=== PATIENT | male | born 1940 | race Hispanic/Latino ===

== ENCOUNTER 2018-01-20 15:50 | Emergency (ER) | payer OTHER, MEDICARE ==
[~2018-01-20] VITALS: Ht 175.3 cm; Wt 98.9 kg
[2018-01-20 19:09] LABS: BILIRUBIN,URINE NEGATIVE (NEGATIVE); CLARITY,URINE CLOUDY (CLEAR); COLOR,URINE YELLOW (YELLOW); KETONES,URINE NEGATIVE (NEGATIVE); LEUKOCYTE ESTERASE ,URINE TRACE (NEGATIVE); NITRITE,URINE NEGATIVE (NEGATIVE); PROTEIN,URINE DIPSTICK 2+ (NEGATIVE); URINE UROBILINOGEN 0.2 mg/dL (0.2 - 1)
[2018-01-20 19:20] LABS: BACTERIA,URINE MODERATE /HPF; EPITHELIAL CELLS,URINE MODERATE /LPF; RBC,URINE >50 /HPF (0-5)
[2018-01-20 19:47] LABS: BASOPHILS # (AUTO) 0.1 (0.0-0.1); BASOPHILS % 0.5 % (0.0-1.0); EOSINOPHILS # (AUTO) 0.2 (0.0-0.4); EOSINOPHILS % 1.4 % (0.0-6.0); HEMATOCRIT 42.1 % (38.2-49.6); HEMOGLOBIN 14.3 g/dL (14.0-18.0); LYMPHOCYTES # (AUTO) 2.1 (1.0-3.2); LYMPHOCYTES % 17.1 % (18.0-39.1); MEAN CORPUSCULAR HEMOGLOBIN 29.9 pg (28-32); MEAN CORPUSCULAR VOLUME 87.9 fL (81-99); MONOCYTES # (AUTO) 0.8 (0.2-0.8); MONOCYTES % 6.9 % (4.4-11.3); NEUTROPHILS # (AUTO) 8.7 (2.1-6.9); NEUTROPHILS % 72.6 % (38.7-80.0); PLATELET COUNT 265 x10e3/uL (140-360); RED BLOOD COUNT 4.79 x10e6/uL (4.3-5.7); RED CELL DISTRIBUTION WIDTH 13.6 % (11.7-14.4)
[2018-01-20 20:01] LABS: ALBUMIN 3.8 g/dL (3.5-5.0); ANION GAP 13.7 mmol/L (8-16); CALCIUM 10.1 mg/dL (8.4-10.2); CREATININE, SERUM 1.64 mg/dL (0.72-1.25); POTASSIUM 4.7 mmol/L (3.5-5.1)
[2018-01-20] MEDS ORDERED: DEXTROSE 50% SYRINGE 50 ML IV STA (20:28)
[2018-01-20] MEDS ORDERED: DEXTROSE 50% SYRINGE 50 ML IV ONE (20:30)
[2018-01-20 22:19] VITALS: BP 165/72
== END 2018-01-20 22:59 | disposition home or self-care (01) ==
LOC: ER 15:50
DX: T83.018A Breakdown (mechanical) of other urinary catheter, initial encounter (principal); E11.649 Type 2 diabetes mellitus with hypoglycemia without coma; I10 Essential (primary) hypertension; H40.9 Unspecified glaucoma
CPT/HCPCS: 36415; 51702; 80053; 81001; 85025; 99284; J7799; 51700

== ENCOUNTER 2018-02-18 02:41 | Emergency (ER) | payer OTHER, MEDICARE ==
[~2018-02-18] VITALS: Ht 175.3 cm; Wt 98.9 kg
== END 2018-02-18 03:30 | disposition home or self-care (01) ==
LOC: ER 02:41
DX: R33.9 Retention of urine, unspecified (principal); N40.1 Benign prostatic hyperplasia with lower urinary tract symptoms
CPT/HCPCS: 51700; 99282

== ENCOUNTER 2018-02-18 11:33 | Emergency (ER) | payer OTHER, MEDICARE ==
[~2018-02-18] VITALS: Ht 175.3 cm; Wt 98.9 kg
== END 2018-02-18 14:40 | disposition home or self-care (01) ==
LOC: ER 11:33
DX: T83.018A Breakdown (mechanical) of other urinary catheter, initial encounter (principal); I10 Essential (primary) hypertension; E11.9 Type 2 diabetes mellitus without complications; H40.9 Unspecified glaucoma
CPT/HCPCS: 51700; 99282

== ENCOUNTER 2018-02-26 21:00 | Observation (INO) | payer OTHER, MEDICARE ==
[~2018-02-26] VITALS: Ht 175.3 cm; Wt 98.4 kg
[2018-02-26 22:11] LABS: BASOPHILS # (AUTO) 0.1 (0.0-0.1); BASOPHILS % 0.7 % (0.0-1.0); EOSINOPHILS # (AUTO) 0.4 (0.0-0.4); EOSINOPHILS % 4.5 % (0.0-6.0); HEMATOCRIT 33.7 % (38.2-49.6); LYMPHOCYTES # (AUTO) 2.7 (1.0-3.2); LYMPHOCYTES % 32.4 % (18.0-39.1); MEAN CORPUSCULAR HEMOGLOBIN 30.2 pg (28-32); MEAN CORPUSCULAR HGB CONC 35.6 g/dL (31-35); MEAN CORPUSCULAR VOLUME 84.9 fL (81-99); MONOCYTES # (AUTO) 0.8 (0.2-0.8); MONOCYTES % 9.9 % (4.4-11.3); NEUTROPHILS # (AUTO) 4.2 (2.1-6.9); NEUTROPHILS % 51.4 % (38.7-80.0); PLATELET COUNT 270 x10e3/uL (140-360); RED BLOOD COUNT 3.97 x10e6/uL (4.3-5.7)
[2018-02-26 22:15] LABS: BILIRUBIN,URINE NEGATIVE (NEGATIVE); CLARITY,URINE CLEAR (CLEAR); COLOR,URINE YELLOW (YELLOW); KETONES,URINE NEGATIVE (NEGATIVE); LEUKOCYTE ESTERASE ,URINE NEGATIVE (NEGATIVE); NITRITE,URINE NEGATIVE (NEGATIVE); PROTEIN,URINE DIPSTICK NEGATIVE (NEGATIVE); URINE UROBILINOGEN 0.2 mg/dL (0.2 - 1); WBC,URINE (MAN) 0-5 /HPF (0-5)
[2018-02-26 22:20] LABS: INR 1.21; PARTIAL THROMBOPLASTIN TIME 34.1 seconds (23.8-35.5); PROTHROMBIN TIME 14.4 seconds (11.9-14.5)
[2018-02-26 22:29] LABS: ALANINE AMINOTRANSFERASE 13 IU/L (0-55); ALBUMIN 3.5 g/dL (3.5-5.0); ALBUMIN/GLOBULIN RATIO 1.1 (0.8-2.0); ALKALINE PHOSPHATASE 54 IU/L (40-150); ANION GAP 14.1 mmol/L (8-16); BLOOD UREA NITROGEN 18 mg/dL (7-26); BUN/CREATININE RATIO 15 (6-25); CALCIUM 9.3 mg/dL (8.4-10.2); CARBON DIOXIDE 21 mmol/L (22-29); CHLORIDE 93 mmol/L (98-107); CREATINE KINASE 51 IU/L (30-200); CREATININE, SERUM 1.17 mg/dL (0.72-1.25); EST GLOMERULAR FILTRATION RATE > 60 ML/MIN (60-); GLUCOSE 98 mg/dL (74-118); MAGNESIUM 1.8 MG/DL (1.3-2.1); POTASSIUM 4.1 mmol/L (3.5-5.1); SODIUM 124 mmol/L (136-145)
[2018-02-26] MEDS ORDERED: METOPROLOL TART25 MG PO (22:33)
[2018-02-26] MEDS ORDERED: SIMVASTATIN20 MG PO (22:33)
[2018-02-26] MEDS ORDERED: SULFAMETHOXAZO1 EAC1 PO (22:33)
[2018-02-26] MEDS ORDERED: DIOVAN HCT 1601 EACH (22:33)
[2018-02-26] MEDS ORDERED: DORZOLAMIDE-TIM10 ML OP (22:33)
[2018-02-26] MEDS ORDERED: FLOMAX0.4 MG PO (22:33)
[2018-02-26] MEDS ORDERED: JANUVIA100 MG PO (22:33)
[2018-02-26] MEDS ORDERED: ASPIRIN81 MG (22:33)
[2018-02-26] MEDS ORDERED: METFORMIN HCL500 M2 PO (22:33)
[2018-02-26] MEDS ORDERED: AMLODIPINE BESY10 MG PO (22:33)
[2018-02-26] MEDS ORDERED: GLIPIZIDE5 MG PO (22:33)
--- NOTE | 2018-02-26 22:44 | Diagnostic Imaging Report ---
CHEST SINGLE (PORTABLE), 02/26/2018 9:59 PM Technique: CHEST SINGLE (PORTABLE) Comparison: None available. Clinical history: \S\BIGEMINY Findings: See Impression Impression: 1. Prominent cardiac silhouette and widening of the mediastinum which may be accentuated by portable technique. Recommend upright PA and lateral for better assessment. 2. No consolidation or edema. 3. No effusion or pneumothorax.. Signed by: Dr Fide Mcgrath MD on 02/26/2018 10:41 PM
[2018-02-26 22:49] LABS: THYROID STIMULATING HORMONE 3.445 uIU/mL (0.350-4.940)
[2018-02-26] MEDS ORDERED: SODIUM CHLORIDE 0.9% 500ML 500 ML IV ONE (23:00)
[2018-02-27] VITALS (8 sets, daily range): BP systolic 126–174; BP diastolic 62–73
[2018-02-27] MEDS ORDERED: ONDANSETRON HCL INJ 2 MG/ML VIAL IV PRN (00:30)
[2018-02-27] MEDS ORDERED: DEXTROSE 50% SYRINGE 50 ML IV PRN (00:30)
[2018-02-27] MEDS ORDERED: FAMOTIDINE 20 MG/2 ML VIAL IV SCH (00:30)
[2018-02-27 06:56] LABS: BASOPHILS # (AUTO) 0.1 (0.0-0.1); BASOPHILS % 0.9 % (0.0-1.0); EOSINOPHILS # (AUTO) 0.4 (0.0-0.4); EOSINOPHILS % 5.7 % (0.0-6.0); HEMATOCRIT 35.3 % (38.2-49.6); HEMOGLOBIN 12.3 g/dL (14.0-18.0); LYMPHOCYTES # (AUTO) 2.2 (1.0-3.2); LYMPHOCYTES % 27.8 % (18.0-39.1); MEAN CORPUSCULAR HEMOGLOBIN 30.4 pg (28-32); MEAN CORPUSCULAR HGB CONC 34.8 g/dL (31-35); MEAN CORPUSCULAR VOLUME 87.2 fL (81-99); MONOCYTES # (AUTO) 0.8 (0.2-0.8); MONOCYTES % 10.2 % (4.4-11.3); NEUTROPHILS # (AUTO) 4.2 (2.1-6.9); NEUTROPHILS % 54.4 % (38.7-80.0); PLATELET COUNT 251 x10e3/uL (140-360); RED BLOOD COUNT 4.05 x10e6/uL (4.3-5.7); RED CELL DISTRIBUTION WIDTH 13.1 % (11.7-14.4)
[2018-02-27 07:20] LABS: ALBUMIN 3.1 g/dL (3.5-5.0); ANION GAP 11.2 mmol/L (8-16); CALCIUM 8.8 mg/dL (8.4-10.2); CREATININE, SERUM 1.27 mg/dL (0.72-1.25); POTASSIUM 4.2 mmol/L (3.5-5.1)
[2018-02-27] MEDS: INSULIN REGULAR, HUMAN 100 UNIT/1 ML 3ML VIAL SQ SCH ×4 (07:30→20:40)
--- NOTE | 2018-02-27 09:52 | History and Physical ---
PCP: Paty Swenson MD CHIEF COMPLAINT: Palpitations. HISTORY OF PRESENT ILLNESS: This is a 77-year-old male with abnormal EKG that showed a left bundle branch block with some heart block, but the patient is on beta jatin, metoprolol tartrate 25 mg twice a day. He is also on valsartan with hydrochlorothiazide. He came in with sodium level of 124. The patient does have urinary retention with multiple ER visits. He has a Kang catheter in place at this time. PAST MEDICAL HISTORY: Hypertension hypothyroidism, diabetes type 2, dyslipidemia, cardiac arrhythmia, possible chronic heart block, chronic urinary tract infection. PAST SURGICAL HISTORY: Noncontributory. SOCIAL HISTORY: The patient does not smoke or use alcohol. No recreational drug use. HOME MEDICATIONS: Losartan/hydrochlorothiazide, Flomax, Tresiba, glipizide, Norvasc, Januvia, simvastatin, metformin, metoprolol tartrate, eyedrops, Bactrim, aspirin. ALLERGIES: NO KNOWN ALLERGY. PHYSICAL EXAMINATION VITAL SIGNS: Temperature is 98. Blood pressure 146/73. Pulse rate is 65. Respirations 18. GENERAL: The patient is in no acute distress. He is awake. HEENT: Normocephalic, atraumatic, anicteric. NECK: Supple grossly. PULMONARY: Diminished breath sounds. CARDIOVASCULAR: Bradycardia. ABDOMEN: Soft. : Kang catheter in place. EXTREMITIES: No cyanosis. NEUROLOGIC: No focal deficit. LABORATORY: Sodium is 124, potassium 4.2, chloride 96, bicarb 21, BUN 18, creatinine 1.27, glucose 171. WBC is 7.7, hemoglobin 12, hematocrit 35, platelets 251. IMAGING: Chest x-ray is unremarkable. IMPRESSION 1. Left bundle branch block with abnormal electrocardiogram, most likely chronic with bradycardia secondary to metoprolol medication. Heart block most likely from beta jatin as well. 2. Hyponatremia, most likely from the Bactrim and the hydrochlorothiazide and the combination of the blood pressure medication that the patient is taking. 3. Multiple chronic baseline problems including Kang catheter for urinary retention. PLAN: Continue with Kang catheter care. Discontinue valsartan/hydrochlorothiazide. Give the patient valsartan 320 mg daily. Stop the beta jatin. Stop the Bactrim. Continue with his other medications. Will repeat the lab work in the morning. Will go also check the patient's TSH and glycohemoglobin A1c along with B12 and repeated BMP. Job#: [id number]
--- NOTE | 2018-02-27 10:48 | Diagnostic Imaging Report ---
PROCEDURE: CT CHEST WITHOUT CONTRAST CT scan of the chest WITHOUT intravenous contrast, using standard protocol. TECHNIQUE: The chest was scanned utilizing a multidetector helical scanner from the apex to the level of the adrenal glands. No IV contrast was administered per physician request. Coronal and sagittal multiplanar reformations were obtained. RADIATION DOSE: DLP: 473 mGy-cm COMPARISON: Chest radiograph 02/26/18. INDICATIONS: HYPONATREMIA, BIGEMINY FINDINGS: Lines/tubes: None. Lungs and Airways: Central airways are patent. Mild bronchial wall thickening. Patchy dependent atelectasis in the lower lobes. There is a 2 mm solid nodule in the left upper lobe on series 3, image 45 and 4 mm of solid pulmonary nodule on series 3 image 68. Punctate calcified granuloma in the left upper lobe. Pleura: The pleural spaces are clear. Heart and mediastinum: The thyroid gland is normal. No significant mediastinal, hilar or axillary lymphadenopathy is seen. No evidence of pericardial effusion. Coronary atherosclerosis. Prostatic calcifications of the aortic arch and branch vessels. No evidence of aneurysm. Soft tissues: Normal. Abdomen: Limited views of the upper abdomen show no abnormality within the visualized spleen, pancreas, or kidneys. Punctate calcification, likely granuloma is present within the right hepatic lobe. The visualized portions of the adrenal glands are unremarkable. Bones: No acute findings. Mild scattered degenerative changes. IMPRESSION: No evidence of pneumonia. Mild bronchial wall thickening, which may reflect bronchitis. Coronary and aortic atherosclerosis. Dictated by: GRACIE ROMO M.D. on 02/27/2018 at 10:52 Electronically approved by: GRACIE ROMO M.D. on 02/27/2018 at 10:52
[2018-02-27] MEDS: AMLODIPINE BESYLATE 10 MG TAB PO SCH (11:45)
[2018-02-27] MEDS: VALSARTAN 160 MG TAB PO SCH (11:45)
[2018-02-27] MEDS ORDERED: TRIMETHOPRIM/SULFAMETHOXAZOLE 160-800 MG TAB PO SCH (17:00)
[2018-02-27] MEDS ORDERED: SIMVASTATIN 20 MG TAB PO SCH (21:00)
[2018-02-28] VITALS: BP 112/58
[2018-02-28 04:00] VITALS: BP 136/65
[2018-02-28 05:13] LABS: MAGNESIUM 2.1 MG/DL (1.3-2.1); PHOSPHORUS 3.7 MG/DL (2.3-4.7)
[2018-02-28 05:16] LABS: ANION GAP 10.4 mmol/L (8-16); BLOOD UREA NITROGEN 16 mg/dL (7-26); BUN/CREATININE RATIO 14 (6-25); CALCIUM 9.2 mg/dL (8.4-10.2); CARBON DIOXIDE 24 mmol/L (22-29); CHLORIDE 99 mmol/L (98-107); CREATININE, SERUM 1.15 mg/dL (0.72-1.25); EST GLOMERULAR FILTRATION RATE > 60 ML/MIN (60-); GLUCOSE 115 mg/dL (74-118); POTASSIUM 4.4 mmol/L (3.5-5.1); SODIUM 129 mmol/L (136-145)
[2018-02-28 05:35] LABS: THYROID STIMULATING HORMONE 1.589 uIU/mL (0.350-4.940)
[2018-02-28 05:51] LABS: FOLATE 11.1 ng/mL (7.0-15.4)
[2018-02-28] MEDS: INSULIN REGULAR, HUMAN 100 UNIT/1 ML 3ML VIAL SQ SCH ×2 (07:30→12:15)
[2018-02-28 07:49] VITALS: BP 137/81
[2018-02-28] MEDS ORDERED: DORZOLAMIDE/TIMOLOL (OPTH SOL) 10 ML DRPETTE OP SCH (09:00)
[2018-02-28] MEDS ORDERED: ASPIRIN 81 MG CHEW TAB PO SCH (09:00)
[2018-02-28] MEDS ORDERED: GLIPIZIDE 5 MG TAB PO SCH (09:00)
[2018-02-28] MEDS ORDERED: SITAGLIPTIN 100 MG TAB PO SCH (09:00)
[2018-02-28 09:13] VITALS: BP 137/81
[2018-02-28] MEDS: VALSARTAN 160 MG TAB PO SCH (09:13)
[2018-02-28] MEDS: AMLODIPINE BESYLATE 10 MG TAB PO SCH (09:13)
[2018-02-28 11:29] VITALS: BP 147/72
[2018-02-28] MEDS ORDERED: AMLODIPINE BESY10 MG PO (13:29)
[2018-02-28] MEDS ORDERED: DIOVAN160 MG PO (13:29)
[2018-02-28] MEDS ORDERED: ZOFRAN ODT4 MG SL (13:30)
[2018-02-28] MEDS ORDERED: CIPRO500 MG PO (13:30)
--- NOTE | 2018-02-28 16:35 | Discharge Summary ---
PRIMARY CARE PHYSICIAN: Dr. Paty Swenson TOP WADDY: Dr. Hubert Medina. FINAL DIAGNOSES 1. Bradycardia secondary to metoprolol. 2. Hyponatremia secondary to hydrochlorothiazide in combination with valsartan. 3. Urinary retention secondary to prostate enlargement, has Kang catheter in place. SUMMARY: This 77-year-old male came in with bradycardia. The patient is asymptomatic. He does have a Kang catheter in place. Patient is on Flomax and multiple other medications, but his sodium level on admission was 124. He was on valsartan/hydrochlorothiazide. He was also initiated on Bactrim recently for the urinary tract infection. Combination of the metoprolol also causing the bigeminy and bradycardia, which now resolved. Pulse rate is now 70 instead of 40. The patient is stable. He will discontinue the Norvasc 5 mg, the metoprolol, the Bactrim and the Diovan HCT. He will go home with the following medications: 1. Home medications he will resume include aspirin, his eyedrops, glipizide, metformin, simvastatin and his Januvia along with Flomax. 2. New prescription is Norvasc 10 mg daily. This is changed from 5 mg he was taking at home. 3. Diovan 320 mg daily. This is changed from Diovan HCT. 4. Cipro 500 mg 1 tablet twice a day for 7 days. 5. Zofran ODT 4 mg sublingual q.6 h. as needed for nausea. The patient will go home with a leg bag. Kang catheter care education was given to the patient and family. The patient is stable and discharged home today. Follow up with Dr. Paty Swenson next week. Follow up with urology as planned. Follow up with Dr. Medina as planned. Job#: [id number]
[2018-02-28] MEDS ORDERED: TAMSULOSIN HCL 0.4 MG CAP PO SCH (21:00)
[2018-03-01] MEDS ORDERED: GLIPIZIDE 5 MG TAB PO SCH (07:30)
[2018-03-01] MEDS ORDERED: DORZOLAMIDE/TIMOLOL (OPTH SOL) 10 ML DRPETTE OP SCH (09:00)
[2018-03-04 07:27] LABS: OSMOLALITY,SERUM OSMOMETER 257 mOsmol/kg (280-301)
== END 2018-02-28 14:16 | disposition home or self-care (01) ==
LOC: ER 21:00 → ERHOLD 02-27 00:32 → INTOOBSV 02-27 00:32 → MED/SURG3 02-27 01:33
PROVIDERS: ADMIT Internal Medicine; ATTEND Internal Medicine
DX: R00.1 Bradycardia, unspecified (principal); T44.7X5A Adverse effect of beta-adrenoreceptor antagonists, initial encounter; N32.89 Other specified disorders of bladder; I49.3 Ventricular premature depolarization; E78.5 Hyperlipidemia, unspecified; H40.9 Unspecified glaucoma; E11.22 Type 2 diabetes mellitus with diabetic chronic kidney disease; I12.9 Hypertensive chronic kidney disease with stage 1 through stage 4 chronic kidney disease, or unspecified chronic kidney disease; N18.9 Chronic kidney disease, unspecified; R31.0 Gross hematuria; Z96.0 Presence of urogenital implants; I44.7 Left bundle-branch block, unspecified; E22.2 Syndrome of inappropriate secretion of antidiuretic hormone; R33.9 Retention of urine, unspecified; N40.1 Benign prostatic hyperplasia with lower urinary tract symptoms; R33.8 Other retention of urine
CPT/HCPCS: 36415 ×3; 71045; 71250; 80048; 80053 ×2; 81001; 82550; 82553; 82607; 82746; 82948 ×2; 83036; 83735 ×2; 83880; 83930; 83935; 84100; 84300; 84443 ×2; 84484; 85025 ×2; 85610; 85730; 87086; 93005; 93306; 99284; G0378 ×2; J7040